=== PATIENT | male | born 1995 | race Caucasian/White ===

== ENCOUNTER → 2022-07-28 17:00 | Outpatient (CLI) | payer SELFPAY ==
[2022-07-28 19:16] LABS: Urine N gonorrhoeae NOT DETECTED
[2022-07-28 19:19] LABS: Urine Chlamydia NOT DETECTED
== END ==
PROVIDERS: Visit Provider Physician Assistant
DX: R36.9 Urethral discharge, unspecified (principal)
CPT/HCPCS: 87491; 87591